=== PATIENT | female | born 1960 | race Caucasian/White ===

== ENCOUNTER → 2016-10-16 | Outpatient (REF) | payer BC ==
[~2016-10-16] MED LIST: ADVI200C5 PO; ASPI1TAB PO; ASPI81CH PO; BIOT50004 PO; CRES5TAB PO; FISH120012 PO; GINS100C2 PO; HYDR200T3 PO; K-TA10TA2 PO; LEVA250T PO; LISI-538 PO; MAG400TA PO; MELA1LIQ2 PO; MELA1TAB15 PO; METF500T PO; MULT1TAB10 PO; SYNT175T2 PO; VENL37.54 PO; VENL37TA PO; VITA100072 PO
[2016-10-16 18:27] LABS: MEAN CORPUSCULAR HEMOGLOBIN 30.6 pg (27.0-33.0); MEAN CORPUSCULAR HGB CONC 34.4 g/dl (32.0-36.5); MEAN CORPUSCULAR VOLUME 88.8 fl (80.0-96.0); RED CELL DISTRIBUTION WIDTH 13.9 % (11.5-14.5); WHITE BLOOD COUNT 11.1 K/mm3 (4.0-10.0)
[2016-10-16 19:56] LABS: ALBUMIN 3.7 GM/DL (3.2-5.2); ALBUMIN/GLOBULIN RATIO 1.16 (1.00-1.93); ALKALINE PHOSPHATASE 144 U/L (45-117); ALT/SGPT 26 U/L (12-78); ANION GAP 8 MEQ/L (8-16); AST/SGOT 20 U/L (15-37); BILIRUBIN,TOTAL 0.2 MG/DL (0.2-1.0); BLOOD UREA NITROGEN 21 MG/DL (7-18); CARBON DIOXIDE LEVEL 30 MEQ/L (21-32); CHLORIDE LEVEL 107 MEQ/L (98-107); CHOLESTEROL LEVEL 181 MG/DL (<200); CREATININE FOR GFR 0.89 MG/DL (0.55-1.02); GLOMERULAR FILTRATION RATE > 60.0 (>51); GLUCOSE, FASTING 90 MG/DL (70-105); MAGNESIUM LEVEL 1.9 MG/DL (1.8-2.4); POTASSIUM SERUM 4.5 MEQ/L (3.5-5.1); SODIUM LEVEL 145 MEQ/L (136-145); TOTAL PROTEIN 6.9 GM/DL (6.4-8.2); TRIGLYCERIDES LEVEL 341 MG/DL (<150)
== END | disposition home or self-care (01) ==
LOC: M SFHCPLAZ 15:43
PROVIDERS: ATTEND Internal Medicine
DX: M35.1 Other overlap syndromes (principal); R73.01 Impaired fasting glucose; E78.00 Pure hypercholesterolemia, unspecified; I10 Essential (primary) hypertension

== ENCOUNTER → 2016-12-04 | Outpatient (CLI) | payer BC ==
[~2016-12-04] MED LIST changes: +LIDOCAINE 1% MDV 20ML VIAL As Ordered ONE
--- NOTE | 2016-12-04 12:28 | REP ---
SPECIMEN RADIOGRAPH: Specimen radiographs are performed status post stereotactic biopsy of the left breast. Multiple calcifications are seen in the specimens. Signed by Rashaun Rosario MD 12/04/2016 04:15 P
--- NOTE | 2016-12-04 12:30 | REP ---
POSTBIOPSY MAMMOGRAM LEFT BREAST: Postbiopsy mammogram left breast is performed in the MLO and CC projections. A metallic clips is seen at the site of the calcifications in the upper left breast. Calcifications are no longer visualized. Signed by Rashaun Rosario MD 12/04/2016 04:15 P
--- NOTE | 2016-12-04 17:37 | REP ---
STEREOTACTIC LEFT BREAST BIOPSY: The procedure was performed under the direct supervision of Dr. Rosario. The patient has a history of a cluster of new microcalcifications in the upper aspect of the left breast seen on a previous mammogram from [facility] performed on 11/07/2016. The risks and benefits of the procedure were explained to the patient and informed consent was obtained. A cranial caudal approach was utilized. The calcifications were localized using stereotactic mammographic guidance. The skin was prepped and draped in a sterile fashion. 1% Xylocaine was used as a local anesthetic. A 10-gauge suction assisted mammotome needle was inserted and 10 core biopsy samples were obtained. Specimen radiograph demonstrates the presence of calcifications to be within the specimen. A marker clip was placed at the biopsy site. The patient tolerated the procedure well and there were no immediate complications. After the appropriate amount of monitored convalescence the patient was discharged from the department. Reviewed by TRENTON Kelley 12/05/2016 01:29 PEdited and Signed by Rashaun Rosario MD 12/05/2016 08:04 P
== END ==
LOC: M RADPRO 09:56
PROVIDERS: ATTEND Surgery
DX: N64.1 Fat necrosis of breast (principal); R92.0 Mammographic microcalcification found on diagnostic imaging of breast

== ENCOUNTER → 2017-05-25 | Outpatient (CLI) | payer BC ==
[~2017-05-25] MED LIST changes: +LEVA1TAB PO; -LEVA250T PO; -LIDOCAINE 1% MDV 20ML VIAL As Ordered ONE; -METF500T PO; +METF500T13 PO
--- NOTE | 2017-05-25 15:25 | REP ---
LOW-DOSE LUNG CANCER SCREENING NONCONTRAST CHEST CT: HISTORY: Nicotine dependence. Comparison chest x-ray is from February 12, 2017. FINDINGS: There is a 4 mm nodule in the left lower lobe on image number 58 of 109. This is noncalcified. No other pulmonary nodule is appreciated. There is vascular calcification noted. No endobronchial disease is seen. IMPRESSION: Positive screening lung CT study. 4 mm nodule left lower lobe. By Fleischner Society criteria a followup chest CT is indicated in 6-12 months. Signed by Jayson Rebolledo MD 05/25/2017 04:59 P
== END ==
LOC: M RAD 13:33
PROVIDERS: ATTEND Internal Medicine
DX: Z87.891 Personal history of nicotine dependence (principal); R91.8 Other nonspecific abnormal finding of lung field

== ENCOUNTER → 2017-08-20 | Outpatient (CLI) | payer BC ==
--- NOTE | 2017-08-20 09:31 | REP ---
Clinical: Follow up abnormal pulmonary findings. Comparison: 05/25/2017. Findings: Chronic stable interstitial changes and mild chronic bronchiectasis remains stable. The noncalcified 4-mm nodule in the left lower lobe is unchanged (image 62). No new consolidation, significant nodule or mass lesion appreciated. No pleural effusion/reaction or pneumothorax. No obvious adenopathy. Stable atherosclerotic changes to the thoracic aorta and coronary arteries noted without aortic aneurysm or cardiomegaly. No pericardial effusion. Musculoskeletal structures demonstrate age-related changes without focal osseous abnormality. Upper abdomen demonstrates prior cholecystectomy and stable 3.1 cm left adrenal adenoma. Impression: 1. Stable chronic pulmonary parenchymal changes and stable 4 mm noncalcified nodule in the left lower lobe. Follow-up examination in 12 months to document stability may be warranted. 2. No new acute mediastinal or pleuroparenchymal process. Signed by Tobin Grande MD 08/20/2017 09:23 A
== END ==
LOC: M RAD 08:33
PROVIDERS: ATTEND Internal Medicine Pulmonary Disease
DX: R91.1 Solitary pulmonary nodule (principal)

== ENCOUNTER → 2018-03-15 | Outpatient (CLI) | payer BC | LOC: M RAD 10:08 | DX: R91.1 Solitary pulmonary nodule (principal) | CPT/HCPCS: 71250 ==

== ENCOUNTER → 2018-10-07 | Outpatient (CLI) | payer BC ==
[~2018-10-07] MED LIST changes: -LEVA1TAB PO; +LEVA250T13 PO
--- NOTE | 2018-10-09 08:39 | REP ---
Clinical: Follow up solitary pulmonary nodule. Technique: Axial noncontrast images from the thoracic inlet to the upper abdomen with coronal and sagittal re-formations. Comparison: 08/20/2017. Findings: The bilateral lung gillis again demonstrate mild chronic emphysematous changes with small scattered bullae/blebs and mild bronchiectasis. Previously noted 4 mm noncalcified nodule in the left lower lobe (image 60) remains stable. No acute consolidation, further nodule or mass lesion identified. No effusion. No pneumothorax. No obvious adenopathy. Stable atherosclerotic changes to the thoracic aorta and coronary arteries again noted without aortic aneurysm, cardiomegaly or pericardial effusion. Limited upper abdomen demonstrates stable left adrenal adenoma and evidence of prior cholecystectomy. Surrounding musculoskeletal structures without focal osseous abnormality. Impression: 1. Stable noncalcified 4-mm nodule in the left lower lobe. 2. Stable mild/moderate chronic emphysematous changes. 3. Stable left adrenal adenoma. 4. No acute mediastinal or pleuroparenchymal process appreciated. Electronically Signed by Tobin Grande MD 10/09/2018 08:31 A
== END ==
LOC: M RAD 13:31
PROVIDERS: ATTEND Internal Medicine Pulmonary Disease
DX: R91.1 Solitary pulmonary nodule (principal)

== ENCOUNTER → 2018-10-14 | Outpatient (REF) | payer BC ==
[2018-10-14 12:55] LABS: CREATININE, URINE 52.7 MG/DL; MALB URINE SIEMENS 24.1 MG/L; MAU/CREAT RATIO 45.7 MCG/MG (0.0-30.0)
[2018-10-14 13:11] LABS: ALBUMIN 3.8 GM/DL (3.2-5.2); ALT/SGPT 27 U/L (12-78); BILIRUBIN,TOTAL 0.3 MG/DL (0.2-1.0); BLOOD UREA NITROGEN 15 MG/DL (7-18); CALCIUM LEVEL 8.9 MG/DL (8.5-10.1); CARBON DIOXIDE LEVEL 25 MEQ/L (21-32); CHLORIDE LEVEL 105 MEQ/L (98-107); CHOLESTEROL LEVEL 160 MG/DL (<200); CHOLESTEROL RISK RATIO 2.285 (<5); CREATININE FOR GFR 0.71 MG/DL (0.55-1.30); GLOMERULAR FILTRATION RATE > 60.0 (>51); GLUCOSE, FASTING 69 MG/DL (70-100); HDL CHOLESTEROL 70 MG/DL (>40); LDL CHOLESTEROL 63 MG/DL (<100); NON-HDL-C 90 MG/DL; POTASSIUM SERUM 4.5 MEQ/L (3.5-5.1); SODIUM LEVEL 142 MEQ/L (136-145); TOTAL PROTEIN 6.7 GM/DL (6.4-8.2); TRIGLYCERIDES LEVEL 136 MG/DL (<150)
[2018-10-14 13:39] LABS: HEMOGLOBIN A1c 5.1 %; HEPATITIS C VIRUS ABY INDEX 0.1 INDEX (<0.8)
== END ==
LOC: M SFHCPLAZ 09:01
PROVIDERS: ATTEND Internal Medicine
DX: I10 Essential (primary) hypertension (principal); R94.5 Abnormal results of liver function studies; R73.01 Impaired fasting glucose; E78.00 Pure hypercholesterolemia, unspecified; E03.9 Hypothyroidism, unspecified

== ENCOUNTER 2018-10-24 19:00 | Emergency (ER) | payer BC ==
[~2018-10-24] VITALS: Ht 152.4 cm; Wt 59.1 kg
[2018-10-24] MEDS ORDERED: LEFL1TAB4 (19:06)
[2018-10-24] MEDS ORDERED: SYNT150T (19:06)
--- NOTE | 2018-10-24 21:22 | REPVR ---
EXAM: CT Head Without Contrast EXAM DATE/TIME: 10/24/18 (8:27pm) CLINICAL HISTORY: 58 year old female. Recent fall. Hit the back of her head. TECHNIQUE: Axial computed tomography images of the head/ without contrast. All CT scans at this facility use at least one of these dose optimization techniques: automated exposure control; mA and/or kV adjustment per patient size (includes targeted exams where dose is matched to clinical indication); or iterative reconstruction. COMPARISON: No relevant prior studies available FINDINGS: Brain: Unremarkable. No acute hemorrhage. No significant white matter disease. No cerebral edema. Ventricles: Normal. No ventriculomegaly. Bones/joints: Normal. No acute fracture. Sinuses: Normal as visualized. No acute sinusitis. Mastoid air cells: Normal as visualized. No mastoid effusion. Soft tissues: Mild occipital scalp swelling. IMPRESSION: No acute intracranial pathology is appreciated. Electronically signed by: Shweta Santacruz On 10/24/2018 21:22:26 PM
[2018-10-24 21:52] VITALS: BP 167/83
== END 2018-10-24 21:53 | disposition home or self-care (01) ==
LOC: M ED 19:00
DX: S00.01XA Abrasion of scalp, initial encounter (principal); S00.03XA Contusion of scalp, initial encounter; W18.39XA Other fall on same level, initial encounter; Y92.481 Parking lot as the place of occurrence of the external cause; Y99.0 Civilian activity done for income or pay; E11.9 Type 2 diabetes mellitus without complications; I10 Essential (primary) hypertension; E78.5 Hyperlipidemia, unspecified; E03.9 Hypothyroidism, unspecified; M32.9 Systemic lupus erythematosus, unspecified; Z79.899 Other long term (current) drug therapy; Z79.890 Hormone replacement therapy; Z79.84 Long term (current) use of oral hypoglycemic drugs; Z79.82 Long term (current) use of aspirin; Z88.8 Allergy status to other drugs, medicaments and biological substances; F17.210 Nicotine dependence, cigarettes, uncomplicated

== ENCOUNTER 2019-02-27 22:00 | Emergency (ER) | payer BC ==
[~2019-02-27] VITALS: Ht 152.4 cm; Wt 65.9 kg
[~2019-02-27 22:00] MED LIST changes: -ASPI1TAB PO; -ASPI81CH PO; +ASPI81CH49 PO; +ASPI81TA26 PO; +LEFL1TAB4; +SYNT150T; +VENL-63 PO; -VENL37.54 PO; +VITA100018 PO; -VITA100072 PO
[2019-02-28] MEDS ORDERED: ONDANSETRON 4 MG ORAL DISINTEGRATING TAB (Q0162 PER 1MG) PO ONE (00:45)
[2019-02-28] MEDS ORDERED: KETOROLAC TROMETHAMINE 10 MG TAB PO ONE (00:45)
--- NOTE | 2019-02-28 01:55 | REPVR ---
EXAM: CT Abdomen and Pelvis Without Contrast EXAM DATE/TIME: 02/28/2019 12:38 AM CLINICAL HISTORY: 58 years old, female; Abdominal pain; Other: Suprapubic, back; Additional info: Back/suprapubic pain TECHNIQUE: Imaging protocol: Axial computed tomography images of the abdomen and pelvis without contrast. Coronal and sagittal reformatted images were created and reviewed. Radiation optimization: All CT scans at this facility use at least one of these dose optimization techniques: automated exposure control; mA and/or kV adjustment per patient size (includes targeted exams where dose is matched to clinical indication); or iterative reconstruction. COMPARISON: CT ABD PELVIS W/O CONTRAST 03/05/2016 5:53 PM FINDINGS: Lungs: Slight interstitial prominence in the lateral right base. ABDOMEN: Liver: Normal. No mass. Gallbladder and bile ducts: Status post cholecystectomy. Pancreas: Normal. No ductal dilation. Spleen: Normal. No splenomegaly. Adrenals: Fatty mass of the left adrenal measuring 3.6 x 2.5 x 3.2 cm. Kidneys and ureters: Minimal right pelvocaliectasis to the UPJ. Stomach and bowel: Moderate stool throughout much of the colon but greatest proximally. Upper normal fluid filled small bowel with a few air-fluid levels which is slightly decreased since the prior study. Appendix: There are no changes of appendicitis. A normal appendix is not seen. PELVIS: Bladder: Slight distention of the urinary bladder to the L5-S1 level. Reproductive: Unremarkable as visualized. ABDOMEN and PELVIS: Intraperitoneal space: Normal. No free air. No significant fluid collection. Bones/joints: Degenerative changes of the lumbar spine with facet arthropathy and slight anterolisthesis of L3 relative to L4. Soft tissues: Minimal fat filled umbilical hernia. Vasculature: Normal. No abdominal aortic aneurysm. Lymph nodes: Normal. No enlarged lymph nodes. IMPRESSION: 1. Status post cholecystectomy. 2. Left adrenal nodule measuring 3.6 x 2.5 x 3.2 cm. 3. Upper normal fluid filled segments of small bowel with a few air-fluid levels which may reflect minimal ileus or possibly enteritis but is slightly decreased overall since 03/05/2016. 4. Otherwise negative CT abdomen/pelvis. Electronically signed by: Yovany Garcia On 02/28/2019 01:55:19 AM
[2019-02-28] MEDS ORDERED: MIRA3350 PO (02:05)
[2019-02-28] MEDS ORDERED: ZOFR4TAB16 PO (02:05)
[2019-02-28 02:12] VITALS: BP 112/54
--- NOTE | 2019-03-01 07:32 | ED PDOC ---
Post-Departure Follow-Up dr oropeza faxed formal report of ct abd/p for fu Kurt De Santiago MD Mar 01, 2019 07:32
[2019-03-10] MEDS ORDERED: OMEG12003 PO (08:16)
[2019-03-10] MEDS ORDERED: IBUP200C25 PO (08:16)
[2019-03-10] MEDS ORDERED: MULTCAP PO (08:16)
[2019-03-10] MEDS ORDERED: GINS100C PO (08:16)
[2019-03-10] MEDS ORDERED: VENL37.598 PO (08:16)
== END 2019-02-28 02:19 | disposition home or self-care (01) ==
LOC: M ED 22:00
DX: K56.7 Ileus, unspecified (principal); R11.2 Nausea with vomiting, unspecified; E11.9 Type 2 diabetes mellitus without complications; I10 Essential (primary) hypertension; E78.5 Hyperlipidemia, unspecified; E03.9 Hypothyroidism, unspecified; M32.9 Systemic lupus erythematosus, unspecified; Z79.899 Other long term (current) drug therapy; Z79.82 Long term (current) use of aspirin; Z79.84 Long term (current) use of oral hypoglycemic drugs; Z79.1 Long term (current) use of non-steroidal anti-inflammatories (NSAID); Z88.8 Allergy status to other drugs, medicaments and biological substances; F17.210 Nicotine dependence, cigarettes, uncomplicated
CPT/HCPCS: 36415; 74176; 80047; 81001; 99283; Q0162

== ENCOUNTER 2019-03-02 07:10 | Emergency (ER) | payer BC ==
[~2019-03-02] VITALS: Ht 152.4 cm; Wt 64.6 kg
[~2019-03-02 07:10] MED LIST changes: +MIRA3350 PO; +ZOFR4TAB16 PO
[2019-03-02] MEDS ORDERED: SYNT175T2 (07:20)
[2019-03-02 09:13] LABS: BASO % 0.3 % (0.0-1.0); EOS # 0.2 10^3/uL (0.0-0.50); EOS % 1.4 % (0.0-3.0); HEMOGLOBIN 12.9 g/dl (12.0-15.5); LYMPH # 2.6 10^3/uL (1.5-4.5); LYMPH % 24.1 % (24.0-44.0); MEAN CORPUSCULAR HEMOGLOBIN 30.2 pg (27.0-33.0); MEAN CORPUSCULAR HGB CONC 33.9 g/dl (32.0-36.5); MONO # 0.8 10^3/uL (0.0-0.8); NEUTROPHILS # 7.3 10^3/uL (1.8-7.7); NEUTROPHILS % 66.7 % (36.0-66.0); PLATELET COUNT, AUTOMATED 343 10^3/uL (150-450); RED BLOOD COUNT 4.27 10^6/uL (4.00-5.40); WHITE BLOOD COUNT 10.9 10^3/uL (4.0-10.0)
[2019-03-02 09:33] LABS: ALBUMIN 3.4 GM/DL (3.2-5.2); ALT/SGPT 23 U/L (12-78); BILIRUBIN,DIRECT < 0.1 MG/DL (0.0-0.2); BILIRUBIN,TOTAL 0.3 MG/DL (0.2-1.0); LIPASE 62 U/L (73-393); TOTAL PROTEIN 6.6 GM/DL (6.4-8.2)
[2019-03-02] MEDS ORDERED: ISOVUE-370 76% 100ML VIAL (Q9967) As Ordered ONE (09:34)
--- NOTE | 2019-03-02 09:49 | REP ---
Clinical: Constipation and abdominal pain. Technique: Upright view of the chest with supine and upright views of the abdomen and pelvis. Findings: Frontal upright view of the chest demonstrates no acute cardiopulmonary process or free air below the diaphragm to suspect pneumoperitoneum. Supine and upright views of the abdomen and pelvis demonstrate nonspecific bowel gas pattern without obstruction or perforation. No organomegaly. Prior cholecystectomy. 9 mm right renal stone suggested. Impression: Nonspecific bowel gas pattern. Right renal stone. Electronically Signed by Tobin Grande MD 03/02/2019 09:40 A
--- NOTE | 2019-03-02 10:09 | REP ---
Clinical: Abdominal pain. Technique: Axial contrast enhanced images from the lung bases to the pubic symphysis using 100 ml Isovue 370 intravenous contrast material with coronal and sagittal re-formations. Renato: 02/28/2019. Findings: Lung bases demonstrate minimal right basilar dependent changes. Visualized heart and pericardium normal. Diffuse fatty infiltration to the liver suggested without focal hepatic lesion. Spleen, pancreas, right adrenal gland and bilateral kidneys are essentially normal. Small renal hypodensities are stable and compatible with cysts. 3.5 cm heterogeneous enhancing left adrenal mass is similar to prior examinations dating through 2007 and consistent with complex adenoma. There is no evidence for right renal calculus and the finding on recent x-ray corresponds to ingested pill in the proximal transverse colon. The enteric system is without obstruction or acute inflammatory process although mild fecal stasis and constipation cannot be excluded. Pelvis demonstrates distended likely transient otherwise normal bladder and age-appropriate uterus/adnexa. No pelvic fluid or ascites. No free air. No adenopathy. Atherosclerotic changes to the aorta without aneurysm or dissection. Musculoskeletal structures demonstrate age-related degenerative changes without focal osseous abnormality. Impression: 1. Hepatic steatosis without focal hepatic lesion. 2. 3.5 cm heterogeneous enhancing left adrenal mass similar to the prior examinations and likely representing complex adenoma. 3. No renal calculi. Small bilateral renal cysts remain stable. 4. Mild fecal stasis and associated constipation cannot be excluded. 5. No further acute abdominopelvic pathology appreciated. Electronically Signed by Tobin Grande MD 03/02/2019 10:00 A
[2019-03-02] MEDS ORDERED: FLEET ENEMA PR PRN (10:45)
[2019-03-02] MEDS ORDERED: MAGNESIUM CITRATE 300 ML BTL PO ONE (12:00)
[2019-03-02 12:27] VITALS: BP 149/72
--- NOTE | 2019-03-03 06:49 | ED PDOC ---
Post-Departure Follow-Up dr oropeza faxed formal report of ct abd/p for fu Kurt De Santiago MD Mar 03, 2019 06:49
[2019-03-10] MEDS ORDERED: GINS100C PO (08:16)
[2019-03-10] MEDS ORDERED: MULTCAP PO (08:16)
[2019-03-10] MEDS ORDERED: VENL37.598 PO (08:16)
[2019-03-10] MEDS ORDERED: OMEG12003 PO (08:16)
[2019-03-10] MEDS ORDERED: IBUP200C25 PO (08:16)
== END 2019-03-02 12:29 | disposition home or self-care (01) ==
LOC: M ED 07:10
DX: K59.00 Constipation, unspecified (principal); E11.9 Type 2 diabetes mellitus without complications; I10 Essential (primary) hypertension; E78.9 Disorder of lipoprotein metabolism, unspecified; E07.9 Disorder of thyroid, unspecified; Z79.899 Other long term (current) drug therapy; Z79.890 Hormone replacement therapy; Z79.84 Long term (current) use of oral hypoglycemic drugs; Z79.82 Long term (current) use of aspirin; Z88.8 Allergy status to other drugs, medicaments and biological substances; F17.210 Nicotine dependence, cigarettes, uncomplicated
CPT/HCPCS: 36415; 74021; 74177; 80047; 80076; 81001; 83605; 83690; 85025; 87086; 99284; Q9967

== ENCOUNTER 2019-03-21 07:49 | Day surgery (SDC) | payer BC ==
[~2019-03-21] VITALS: Ht 152.4 cm; Wt 62.6 kg
[~2019-03-21 07:49] MED LIST changes: +GINS100C PO; +IBUP200C25 PO; +MULTCAP PO; +OMEG12003 PO; +SYNT175T2; +VENL37.598 PO
[2019-03-21] MEDS ORDERED: NS 1,000 ML IV ONE (09:00)
[2019-03-21] MEDS ORDERED: PROPOFOL 200 MG/20 ML VIAL As Ordered ONE ×3 (09:23→10:02)
--- NOTE | 2019-03-21 10:08 | ROOR ---
Patient Name: Diamond Whelan Procedure Date: 03/21/2019 9:27 AM Date of : 1960 Age: 58 Room: [facility] Gender: Female Note Status: Finalized Procedure: Colonoscopy Indications: High risk colon cancer surveillance: Personal history of colonic polyps Providers: Bolivar ARIAS MD Referring MD: Aaron Morillo MD Requesting Provider: Medicines: Monitored Anesthesia Care Complications: No immediate complications. Procedure: Pre-Anesthesia Assessment: - The heart rate, respiratory rate, oxygen saturations, blood pressure, adequacy of pulmonary ventilation, and response to care were monitored throughout the procedure. - The heart rate, respiratory rate, oxygen saturations, blood pressure, adequacy of pulmonary ventilation, and response to care were monitored throughout the procedure. The Colonoscope was introduced through the anus and advanced to the cecum, identified by appendiceal orifice and ileocecal valve. The colonoscopy was performed with difficulty due to inadequate bowel prep. Successful completion of the procedure was aided by lavage. The patient tolerated the procedure well. The quality of the bowel preparation was inadequate. Findings: The perianal and digital rectal examinations were normal. A 12 mm polyp was found in the ascending colon. The polyp was flat. The polyp was removed with a piecemeal technique using a cold snare. Resection and retrieval were complete. The exam was otherwise normal throughout the examined colon. Impression: - Preparation of the colon was inadequate. - One 12 mm polyp in the ascending colon, removed piecemeal using a cold snare. Resected and retrieved. Recommendation: - Repeat colonoscopy in 6 months for surveillance. Bolivar Arias MD Bolivar ARIAS MD 03/21/2019 10:07:50 AM Electronically signed by Bolivar ARIAS MD Number of Addenda: 0 Note Initiated On: 03/21/2019 9:27 AM Estimated Blood Loss: Estimated blood loss: none.
[2019-03-21 10:30] VITALS: BP 160/85
== END 2019-03-21 11:10 | disposition home or self-care (01) ==
LOC: M OPP 07:49
PROVIDERS: ATTEND Internal Medicine Gastroenterology
DX: Z12.11 Encounter for screening for malignant neoplasm of colon (principal); Z86.010 Personal history of colon polyps; D12.2 Benign neoplasm of ascending colon; Z79.82 Long term (current) use of aspirin; Z79.84 Long term (current) use of oral hypoglycemic drugs; Z88.8 Allergy status to other drugs, medicaments and biological substances; F17.210 Nicotine dependence, cigarettes, uncomplicated

== ENCOUNTER → 2019-04-08 | Outpatient (CLI) | payer BC ==
--- NOTE | 2019-04-08 23:42 | REP ---
Clinical: Follow up solitary pulmonary nodule. Technique: Axial noncontrast images from the thoracic inlet to the upper abdomen with coronal and sagittal re-formations. Comparison: 10/07/2018, 05/25/2017. Findings: Bilateral lung gillis are well-aerated with a mild chronic interstitial changes and mild bronchiectasis again noted. Previously identified 4 mm noncalcified nodule remains stable compared to 05/25/2017. No acute consolidation, significant nodule or mass lesion appreciated. No pleural effusion. No pneumothorax. Tracheobronchial tree is patent. No obvious adenopathy. Atherosclerotic changes to the thoracic aorta and coronary arteries noted without aortic aneurysm or cardiomegaly. No pericardial effusion. Musculoskeletal structures demonstrate age-related changes without focal osseous abnormality. 3 cm complex left adrenal mass unchanged and consistent with adenoma. Impression: 1. Stable 4 mm and noncalcified nodule in the left lower lobe unchanged compared through 2017. Finding likely represents benign chronic granuloma and requires no further investigation. 2. No acute mediastinal or pleuroparenchymal process. 3. Complex left adrenal adenoma unchanged compared to 2017. Electronically Signed by Tobin Grande MD 04/08/2019 11:33 P
== END ==
LOC: M RAD 12:02
PROVIDERS: ATTEND Internal Medicine Pulmonary Disease
DX: R91.1 Solitary pulmonary nodule (principal); D35.02 Benign neoplasm of left adrenal gland

== ENCOUNTER → 2019-11-17 | Outpatient (CLI) | payer BC ==
[2019-11-17 13:04] LABS: HEMOGLOBIN 12.9 g/dl (12.0-15.5); MEAN CORPUSCULAR HEMOGLOBIN 29.8 pg (27.0-33.0); MEAN CORPUSCULAR HGB CONC 32.3 g/dl (32.0-36.5); MEAN CORPUSCULAR VOLUME 92.4 fl (80.0-96.0); PLATELET COUNT, AUTOMATED 333 10^3/uL (150-450); RED BLOOD COUNT 4.33 10^6/uL (4.00-5.40); WHITE BLOOD COUNT 13.1 10^3/uL (4.0-10.0)
[2019-11-17 13:31] LABS: HEMOGLOBIN A1c 5.4 %
[2019-11-17 13:32] LABS: ALBUMIN 3.4 GM/DL (3.2-5.2); ALT/SGPT 21 U/L (12-78); BILIRUBIN,TOTAL 0.2 MG/DL (0.2-1.0); BLOOD UREA NITROGEN 17 MG/DL (7-18); CALCIUM LEVEL 8.6 MG/DL (8.5-10.1); CARBON DIOXIDE LEVEL 30 MEQ/L (21-32); CHLORIDE LEVEL 109 MEQ/L (98-107); CHOLESTEROL LEVEL 156 MG/DL (<200); CHOLESTEROL RISK RATIO 3.319 (<5); CREATININE FOR GFR 0.79 MG/DL (0.55-1.30); GLOMERULAR FILTRATION RATE > 60.0 (>51); GLUCOSE, FASTING 94 MG/DL (70-100); HDL CHOLESTEROL 47 MG/DL (>40); LDL CHOLESTEROL 68 MG/DL (<100); MAGNESIUM LEVEL 1.9 MG/DL (1.8-2.4); NON-HDL-C 109 MG/DL; SODIUM LEVEL 142 MEQ/L (136-145); TOTAL PROTEIN 6.4 GM/DL (6.4-8.2); TRIGLYCERIDES LEVEL 207 MG/DL (<150)
[2019-11-17 13:34] LABS: TOTAL 25(OH) VITAMIN D 10.4 NG/ML (30.0-100.0)
[2019-11-17 13:47] LABS: MALB URINE SIEMENS 39.8 MG/L
== END ==
LOC: M PLALAB 09:11
PROVIDERS: ATTEND Internal Medicine
DX: I10 Essential (primary) hypertension (principal); E03.9 Hypothyroidism, unspecified; R73.01 Impaired fasting glucose; E78.00 Pure hypercholesterolemia, unspecified; M35.1 Other overlap syndromes; M80.00XD Age-related osteoporosis with current pathological fracture, unspecified site, subsequent encounter for fracture with routine healing

== ENCOUNTER → 2020-03-26 | Outpatient (CLI) | payer BC ==
[~2020-03-26] MED LIST changes: +LEFL1TAB4 PO; +MELO15TA28 PO
== END ==
LOC: M LABSMTC 10:17
PROVIDERS: ATTEND Anesthesiology
DX: Z01.818 Encounter for other preprocedural examination (principal); Z11.59 Encounter for screening for other viral diseases
CPT/HCPCS: C9803; U0003

== ENCOUNTER 2020-03-29 09:21 | Day surgery (SDC) | payer BC ==
[~2020-03-29] VITALS: Ht 152.4 cm; Wt 72.5 kg
[2020-03-29] MEDS ORDERED: NS 1,000 ML IV ONE (10:15)
[2020-03-29] MEDS ORDERED: propofoL 500 MG/50 ML VIAL As Ordered ONE (10:45)
[2020-03-29] MEDS ORDERED: LIDOCAINE 2% 100MG/5ML SDV (FOR ANES.) As Ordered ONE (10:45)
--- NOTE | 2020-03-29 11:11 | ROOR ---
Patient Name: Diamond Whelan Procedure Date: 03/29/2020 10:41 AM Date of : 1960 Age: 59 Room: [facility] Gender: Female Note Status: Finalized Procedure: Colonoscopy Indications: High risk colon cancer surveillance: Personal history of colonic polyps, Surveillance: Personal history of adenomatous polyps, inadequate prep on last colonoscopy (less than 1 year ago), High risk colon cancer surveillance: Personal history of adenoma (10 mm or greater in size) Providers: Bolivar ARIAS MD Referring MD: Aaron Morillo MD Requesting Provider: Medicines: Monitored Anesthesia Care Complications: No immediate complications. Procedure: Pre-Anesthesia Assessment: - The heart rate, respiratory rate, oxygen saturations, blood pressure, adequacy of pulmonary ventilation, and response to care were monitored throughout the procedure. The Colonoscope was introduced through the anus and advanced to the cecum, identified by appendiceal orifice and ileocecal valve. The colonoscopy was somewhat difficult due to unsatisfactory bowel prep. Successful completion of the procedure was aided by lavage. The patient tolerated the procedure well. The quality of the bowel preparation was fair. Findings: The perianal and digital rectal examinations were normal. (EXAM: Complete, PREP: Suboptimal) A 10 mm polyp was found in the ascending colon. The polyp was flat. The polyp was removed with a cold snare. Resection and retrieval were complete. Mild sigmoid diverticulosis and small internal hemorrhoids. There was a small lipoma, in the sigmoid colon. The exam was otherwise without abnormality on direct and retroflexion views. Impression: - (EXAM: Complete, PREP: Suboptimal) - One 10 mm polyp in the ascending colon, removed with a cold snare. Resected and retrieved. - Small lipoma in the sigmoid colon. - Mild sigmoid diverticulosis and small internal hemorrhoids. - The examination was otherwise normal on direct and retroflexion views. Recommendation: - Repeat colonoscopy in 2 years because the bowel preparation was suboptimal. - (Rec alternate colon preparation for next colonoscopy) Bolivar Arias MD Bolivar ARIAS MD 03/29/2020 11:11:13 AM Electronically signed by Bolivar ARIAS MD Number of Addenda: 0 Note Initiated On: 03/29/2020 10:41 AM Estimated Blood Loss: Estimated blood loss: none.
[2020-03-29 11:30] VITALS: BP 155/84
== END 2020-03-29 12:05 | disposition home or self-care (01) ==
LOC: M OPP 09:21
PROVIDERS: ATTEND Internal Medicine Gastroenterology
DX: K63.5 Polyp of colon (principal); D17.5 Benign lipomatous neoplasm of intra-abdominal organs; Z86.010 Personal history of colon polyps; F17.210 Nicotine dependence, cigarettes, uncomplicated; Z79.82 Long term (current) use of aspirin; Z79.899 Other long term (current) drug therapy; Z09 Encounter for follow-up examination after completed treatment for conditions other than malignant neoplasm

== ENCOUNTER 2020-07-31 20:25 | Emergency (ER) | payer BC ==
[~2020-07-31] VITALS: Ht 152.4 cm; Wt 68.2 kg
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
--- NOTE | 2020-07-31 22:18 | REPVR ---
PROCEDURE INFORMATION: Exam: XR Left Knee Exam date and time: 07/31/2020 10:03 PM Age: 60 years old Clinical indication: Pain; Knee; Left; Additional info: Fall, rule out fracture TECHNIQUE: Imaging protocol: XR Left knee. Views: 1 or 2 views. COMPARISON: No relevant prior studies available. FINDINGS: Bones/joints: Mild degenerative narrowing of the medial joint space. Degenerative spurring of the patella. No acute fracture. No dislocation. Soft tissues: Unremarkable. IMPRESSION: No acute fracture or dislocation. Electronically signed by: Jairo Ashton On 07/31/2020 22:18:28 PM
--- NOTE | 2020-07-31 22:19 | REPVR ---
PROCEDURE INFORMATION: Exam: XR Right Tibia and Fibula Exam date and time: 07/31/2020 10:03 PM Age: 60 years old Clinical indication: Pain; Lower leg; Left; Additional info: Fall, rule out fracture TECHNIQUE: Imaging protocol: XR Right tibia and fibula. Views: 2 views. COMPARISON: No relevant prior studies available. FINDINGS: Bones/joints: No acute fracture or dislocation. Joint spaces are unremarkable. Soft tissues: Unremarkable. IMPRESSION: No acute findings. Electronically signed by: Jairo Ashton On 07/31/2020 22:19:43 PM
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
[2020-07-31 22:21] LABS: BASO % 0.3 % (0.0-1.0); EOS # 0.2 10^3/uL (0.0-0.5); EOS % 1.4 % (0.0-3.0); HEMATOCRIT 39.5 % (36.0-47.0); HEMOGLOBIN 13.1 g/dl (12.0-15.5); LYMPH # 3.1 10^3/uL (1.5-5.0); LYMPH % 21.4 % (24.0-44.0); MEAN CORPUSCULAR HEMOGLOBIN 30.3 pg (27.0-33.0); MEAN CORPUSCULAR HGB CONC 33.2 g/dl (32.0-36.5); MEAN CORPUSCULAR VOLUME 91.4 fl (80.0-96.0); MONO # 0.9 10^3/uL (0.0-0.8); NEUTROPHILS # 10.3 10^3/uL (1.5-8.5); NEUTROPHILS % 70.4 % (36.0-66.0); PLATELET COUNT, AUTOMATED 307 10^3/uL (150-450); RED BLOOD COUNT 4.32 10^6/uL (4.00-5.40); WHITE BLOOD COUNT 14.6 10^3/uL (4.0-10.0)
[2020-07-31 23:00] LABS: AMPHETAMINES LEVEL URINE NEGATIVE (NEGATIVE); BARBITURATES URINE NEGATIVE (NEGATIVE); BENZODIAZEPINES URINE NEGATIVE (NEGATIVE); CANNABINOIDS URINE NEGATIVE (NEGATIVE); COCAINE METABOLITE URINE NEGATIVE (NEGATIVE); METHADONE URINE NEGATIVE (NEGATIVE); OPIATES URINE NEGATIVE (NEGATIVE); PHENCYCLIDINE URINE NEGATIVE (NEGATIVE)
[2020-07-31 23:02] LABS: ALBUMIN 3.3 GM/DL (3.2-5.2); ALT/SGPT 36 U/L (12-78); BILIRUBIN,DIRECT < 0.1 MG/DL (0.0-0.2); BILIRUBIN,TOTAL 0.3 MG/DL (0.2-1.0); BLOOD UREA NITROGEN 20 MG/DL (7-18); CALCIUM LEVEL 8.9 MG/DL (8.8-10.2); CARBON DIOXIDE LEVEL 26 MEQ/L (21-32); CHLORIDE LEVEL 108 MEQ/L (98-107); CK-MB VALUE MASS 4.2 NG/ML (<3.6); CPK CREATINE PHOSPHOKINASE 261 U/L (26-192); CREATININE FOR GFR 0.74 MG/DL (0.55-1.30); ETHYL ALCOHOL (ETHANOL) < 0.003 % (0.000-0.010); GLOMERULAR FILTRATION RATE > 60.0 (>45); GLUCOSE, FASTING 95 MG/DL (70-100); MB/CK RELATIVE INDEX 1.61 (< OR =4); POTASSIUM SERUM 5.4 MEQ/L (3.5-5.1); SODIUM LEVEL 140 MEQ/L (136-145); TOTAL PROTEIN 6.5 GM/DL (6.4-8.2); TROPONIN I < 0.02 NG/ML (< 0.10)
[2020-08-01 00:20] VITALS: BP 166/83
--- NOTE | 2020-08-01 08:01 | ECGEPIP ---
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
== END 2020-08-01 00:44 | disposition home or self-care (01) ==
LOC: M ED 20:25
DX: S22.010A Wedge compression fracture of first thoracic vertebra, initial encounter for closed fracture (principal); S80.212A Abrasion, left knee, initial encounter; S80.811A Abrasion, right lower leg, initial encounter; W18.30XA Fall on same level, unspecified, initial encounter; Y92.098 Other place in other non-institutional residence as the place of occurrence of the external cause; R42 Dizziness and giddiness; I10 Essential (primary) hypertension; E11.9 Type 2 diabetes mellitus without complications; G62.9 Polyneuropathy, unspecified; L94.9 Localized connective tissue disorder, unspecified
CPT/HCPCS: 71045; 72131; 72170; 73560; 73590; 80048; 80076; 80307; 81001; 82550; 82553; 84484; 85025; 87086; 93005; 99284; G0480

== ENCOUNTER → 2020-08-18 | Outpatient (CLI) | payer BC ==
--- NOTE | 2020-08-21 00:40 | ECWPNPC ---
PATIENT NAME: MEGGAN KRUGER : 1960 GENDER: FEMALE VISIT DATE: 08/18/2020 DISCHARGE DATE: 08/18/20 0956 VISIT LOCKED DATE TIME: PHYSICIAN: NUHA GODINEZ PHYSICIAN PAGER NO: ACTIVE RESOURCE: NUHA GODINEZ REASON FOR APPOINTMENT 1. BACK PAIN- WILL NEED HELP WALKING IN & OUT HISTORY OF PRESENT ILLNESS GENERAL: 60 YEAR-OLD FEMALE REFERRED BY DR. CUBA [facility] FOR LOW BACK PAIN. HISTORY OF FALL INJURY X2. FELL A YEAR AGO AND WAS DIAGNOSED WITH A COMPRESSION FRACTURE. WENT THROUGH PHYSICAL THERAPY AND BRACING AND PAIN IMPROVED. FELL 3 WEEKS AGO AND PAIN IN HER LOWER BACK RETURNED. PAIN IS ON THE LEFT SIDE RADIATING INTO HER BUTTOCK. WAS SEEN AT THE EMERGENCY ROOM. CT SCANS OF THE LUMBAR SPINE ARE REVIEWED. SHOWING AGAIN COMPRESSION FRACTURE AT L1. MRI OF THE LS-SPINE DONE PRIOR TO FALLING SHOWING MULTILEVEL FACET ARTHROPATHY WELL MODERATE MID LUMBAR SPINAL STENOSIS. PATIENT IS ON BIOLOGICS FOR MIXED CONNECTIVE TISSUE DISORDER. DISCUSSED TREATMENT OPTIONS. SHE DOES NOT WANT TO BE OFF OF BIOLOGICS AND IS CONCERNED ABOUT LOWERED IMMUNE STATUS WITH INJECTIONS PLUS. SHE WILL CONTINUE CARE POST INJURY WITH PRIMARY CARE PROVIDER. SHE WILL CONTINUE CARE WITH RHEUMATOLOGY AT THIS POINT. SHE MAY CALL US WHEN COVID 19 ISSUES ARE LESS. - - -. FALL RISK SCREENING: SCREENING :ONE FALL WITH INJURY IN THE PAST YEAR FALL IN JULY - LED HER TO THE ED WITH L1 COMPRESSION FRACTURE. PAIN SCREENING: PATIENT HAS A COMPLAINT OF ACUTE OR CHRONIC PAIN :YES LOCATION OF PAIN:LOW BACK, LEFT HIP INTENSITY OF PAIN (SCALE OF 1 TO 10):5 WHAT DOES YOUR PAIN FEEL LIKE:INTERMITTENT, SHOOTING DURATION:MAINLY DURING THE DAY, INTERMITTENT PAIN IS INCREASED BY:ACTIVITIES, PROLONGED STANDING WALKING PAIN IS DECREASED BY:OTHERS HEAT NURSING NOTE: - - -. PAIN CENTER INTAKE QUESTIONS: DO YOU HAVE A HISTORY OF MRSA? :NO DO YOU TAKE A BLOOD THINNERS? :NO DO YOU HAVE ANY BLEEDING DISORDERS? :NO ANY NEW NUMBNESS OR WEAKNESS IN YOUR LEGS OR ARMS? :NO ANY PACEMAKER,DEFIBRILLATOR, OR DORSAL COLUMN STIMULATOR? :NO DO YOU HAVE ANY RASHES OR OPEN SORES? :NO ARE YOU ALLERGIC TO IV DYE? :NO ARE YOU DIABETIC? :YES TYPE II ANY NEW PROBLEMS WITH YOUR MEDICATIONS? :NO HAVE YOU RECEIVED A VACCINE IN THE PAST 30 DAYS? :NO DO YOU PLAN TO RECEIVE A VACCINE IN THE NEXT 21 DAYS? :NO DO YOU NEED ANY PRESCRIPTION? :NO DO YOU TAKE ANY IMMUNOSUPPRESSIVE MEDICATIONS? :YES HYDROXYCHLOROQUIN CURRENT MEDICATIONS TAKING MOBIC 15 MG TABLET 1 TABLET ORALLY ONCE A DAY NEEDED FOR PAIN TAKING MELATONIN 10 MG TABLET 1 TABLET AT BEDTIME NEEDED WITH FOOD ORALLY ONCE A DAY TAKING ASPIRIN 81 MG TABLET 1 TABLET ORALLY ONCE A DAY TAKING FISH OIL 1200 MG CAPSULE 1 CAPSULE ORALLY ONCE DAILY TAKING PLAQUENIL 200 MG TABLET 1 TABLET WITH FOOD OR MILK ORALLY ONCE A DAY TAKING SYNTHROID 175 MCG TABLET 1 TABLET ON AN EMPTY STOMACH IN THE MORNING ORALLY GURU ONCE A DAY TAKING LISINOPRIL 20 MG TABLET 1 TABLET ORALLY DAILY TAKING METFORMIN HCL 500 MG TABLET 1 TABLET WITH MEALS ORALLY TWICE A DAY TAKING VENLAFAXINE HCL ER 37.5 MG TABLET EXTENDED RELEASE 24 HOUR 1 TAB ORALLY ONCE A DAY TAKING LEFLUNOMIDE 20 MG TABLET 1 TABLET ORALLY ONCE A DAY NOT-TAKING AMOXICILLIN 500 MG CAPSULE 2 CAPSULES ORALLY TID NOT-TAKING COLACE 100 MG CAPSULE 1 CAPSULE ORALLY TWICE A DAY NEEDED FOR CONSTIPATION NOT-TAKING MIRALAX 1 PACKET 1 PACKET MIXED WITH 8 OUNCES OF FLUID ORALLY ONCE A DAY NOT-TAKING MAGNESIUM 500 MG TABLET 1 TABLET WITH A MEAL ORALLY ONCE A DAY NOT-TAKING BIOTIN 5000 MCG TABLET 1 TABLET ORALLY ONCE A DAY NOT-TAKING GINSENG 200 MG CAPSULE 1 CAP(S) ORALLY DAILY NOT-TAKING POTASSIUM CHLORIDE ER 10 MEQ TABLET EXTENDED RELEASE 1 TABLET ORALLY DAILY NOT-TAKING VITAMIN D3 125 MCG (5000 UT) TABLET 1 CAPSULE ORALLY ONCE A DAY NOT-TAKING ROSUVASTATIN CALCIUM 5MG TABLET 1 TABLET ORALLY DAILY MEDICATION LIST REVIEWED AND RECONCILED WITH THE PATIENT PAST MEDICAL HISTORY HYPOTHYROIDISM INSOMNIA HYPERTENSION IMPAIRED FASTING GLUCOSE HYPERCHOLESTEROLEMIA ANXIETY AND DEPRESSION ADRENAL ADENOMA OTHER INTERVERTEBRAL DISC DEGENERATION, LUMBAR REGION NICOTINE DEPENDENCE SENSORY NEUROPATHY MIXED CONNECTIVE TISSUE DISEASE LOW MAGNESIUM LEVELS WEIGHT LOSS LUNG NODULE < 6CM ON CT ELEVATED LIVER FUNCTION TESTS AUTOIMMUNE DISORDER TYPE II DM ALLERGIES LIPITOR: MUSCLE CRAMPS - SIDE EFFECTS LEXAPRO: PATIENT CANNOT RECALL - SIDE EFFECTS SURGICAL HISTORY 11/1984 LAPARASCOPIC CHOLECYSTECTOMY 05/2000 HYSTERECTOMY-HAS OVARIES AND CERVIX 12/1993 COLONOSCOPY WITH POLYPECTOMY 03/2014 COLONOSCOPY WITH POLYPECTOMY 12/17/2015 COLONOSCOPY WITH POLYPECTOMY 03/21/2019 FAMILY HISTORY FATHER AT AGE 63 OF LUNG CANCER.MOTHER IN HER 60S OF DIABETIC COMPLICATIONS. BROTHER AGE 55 OF UROTHELIAL MALIGNANCY. 2 SISTERS ARE WELL. WITH 3 HEALTHY CHILDREN; A SON AGE 12 OF MULTIPLE RELATED ISSUES. SOCIAL HISTORY GENERAL: TOBACCO USE ARE YOU A:CURRENT SMOKER ARE YOU INTERESTED IN QUITTING?THINKING ABOUT QUITTING STATES SHE HAS BEEN CUTTING BACK. COUNSELED THE PATIENT ON SMOKING CESSATION, EDUCATION [id number]/18/2020 HOW MANY CIGARETTES A DAY DO YOU SMOKE?6-10 HOW SOON AFTER YOU WAKE UP DO YOU SMOKE YOUR FIRST CIGARETTE?6-30 MIN HOW OFTEN DO YOU SMOKE CIGARETTES?EVERY DAY PATIENT COUNSELED ON THE DANGERS OF TOBACCO USE AND URGED TO QUIT:08/18/2020 ADDITIONAL FINDINGS: TOBACCO USERLIGHT CIGARETTE SMOKER ((1-9 CIGS/DAY) LATEX QUESTIONNAIRE LATEX ALLERGY : HAVE YOU EVER DEVELOPED ANY TYPE OF REACTION AFTER HANDLING LATEX PRODUCTS SUCH RUBBER GLOVES, CONDOMS, DIAPHRAGMS, BALLOONS, SOCKS, OR UNDERWEAR?NO LATEX ALLERGY : HAVE YOU EVER DEVELOPED ANY TYPE OF REACTION DURING OR AFTER DENTAL APPOINTMENT, VAGINAL/RECTAL EXAMINATION, SURGICAL PROCEDURE, OR ANY OTHER EXPOSURE?NO LATEX RISK : HAVE YOU EVER HAD ANY DIFFICULTY BREATHING OR HIVES AFTER EATING OR HANDLING ANY FRUITS, OR VEGETABLES; SUCH KIWI, BANANAS, STONE FRUITS, OR CHESTNUTSNO LATEX RISK : DO YOU HAVE A PREVIOUS PERSONAL HISTORY OF MORE THAN NINE SURGERIES, SPINA BIFIDA, OR REPEATED CATHERIZATIONS? NO LATEX RISK : ARE YOU FREQUENTLY EXPOSED TO LATEX PRODUCTS IN YOUR OCCUPATION?NO DATE ASKED : 08/18/2020 ALCOHOL SCREENING DID YOU HAVE A DRINK CONTAINING ALCOHOL IN THE PAST YEAR?NO POINTS0 INTERPRETATIONNEGATIVE RECREATIONAL DRUG USE DRUG USE?NO CAFFEINE 4 CUPS OF COFFEE, 2 CUPS OF TEA, AND 2 CANS OF SODA DAILY. SEXUAL HX HAD SEX IN THE LAST 12 MONTHS (VAGINAL, ORAL, OR ANAL)?NO HAVE YOU EVER HAD AN STD?NO HIV / HEP-C SCREENING HIV TEST OFFERED TO PATIENT:YES DATE OFFERED:04/16/2018 TEST ACCEPTED:NO HEP-C TEST OFFERED TO PATIENT:YES DATE OFFERED:04/16/2018 REASON:PATIENT DECLINED TEST ACCEPTED:NO REASON:PATIENT DECLINED BROCHURE PROVIDED TO PATIENTYES GNOSTICIST GNOSTICIST NO RASTAFARI BELIEFS THAT WOULD IMPACT HEALTH CARE. 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 DIET: CARBOHYDRATE CONTROLLED. EXERCISE: NO REGULAR EXERCISE. MARITAL STATUS: . PAIN CLINIC PFS, CLERGY, PUBLIC HEALTH REFERRALS HAS THE PATIENT BEEN EDUCATED REGARDING HIS/HER PLAN OF CARE?YES HAS THE PATIENT BEEN EDUCATED REGARDING PAIN, THE RISK FOR PAIN, THE IMPORTANCE OF EFFECTIVE PAIN MANAGEMENT, AND THE PAIN ASSESSMENT PROCESS?YES HOUSING: LIVES WITH SON. ADVANCE DIRECTIVE ADVANCE DIRECTIVE DISCUSSED WITH PATIENT:YES PATIENT HAS NO ADVANCED DIRECTIVES AND DECLINES INFORMATION ON HCP AT THIS TIME. HOSPITALIZATION/MAJOR DIAGNOSTIC PROCEDURE [facility]-SEPSIS SECONDARY TO ACUTE LEFT PYELONEPHRITIS, HYPOMAGNESEMIA, DM2, MILD ACUTE RENAL FAILURE 03/05-03/09/2016 [facility] ED-ABRASION OF SCALP 10/24/2018 [facility] ED-ILEUS 02/27/2019 [facility] ED-CONSTIPATION 03/02/2019 REVIEW OF SYSTEMS CONSTITUTIONAL: ANY RECENT FEVER NO . CHILLS NO . WEIGHT CHANGE OF UNKNOWN REASONS NO . GASTROENTEROLOGY: NEW UNEXPLAINABLE CHANGES IN BOWEL CONTROL NO . CONSTIPATION NO . GENITOURINARY: ANY NEW CHANGE IN BLADDER CONTROL? NO . NEUROLOGY: NEW ONSET DIZZINESS OR NEUROLOGICAL CHANGES NOT MENTIONED NO . NEW NUMBNESS OR PAIN PATTERNS NOT MENTIONED AND PERTINENT TO TODAY'S VISIT NO . CARDIOLOGY: NEW CHEST PRESSURE NO . NEW CHEST PAIN NO . RESPIRATORY: UNEXPLAINABLE COUGH NO . NEW SHORTNESS OF BREATH NO . VITAL SIGNS WT 150 LBS, HT 60 IN, BMI 29.29 INDEX, BP 142/68 MM HG, HR 79 /MIN, RR 18 /MIN, TEMP 97.7 F, OXYGEN SAT % 99%, SAFE IN ENV? (Y/N) Y, NA INITIALS UT 08:56, REVIEWED BY: JSJ. EMELINA RN. EXAMINATION GENERAL EXAMINATION: GENERAL AWAKE,ALERT ,PLEASANT . PSYCH AFFECT NORMAL . LUNGS: LUNG FOLEY ARE CLEAR TO AUSCULTATION BILATERALLY. GOOD MOVEMENT OF AIR . HEART: S1, S2 IN A REGULAR RATE AND RHYTHM. NO SIGNIFICANT MURMURS, RUBS OR GALLOPS NOTED . LUMBAR: PALPATION: + FOR PAIN OVER L/S SPINE. + FOR PAIN OVER L/S PARASPINALS. ASSESSMENTS DEGENERATIVE LUMBAR SPINAL STENOSIS - M48.061 (PRIMARY) SACROILIITIS - M46.1 TREATMENT DEGENERATIVE LUMBAR SPINAL STENOSIS NOTES: PATIENT WILL RETURN TO OUR CLINIC IF SHE WANTS TO PURSUE INJECTIONS FOR CHRONIC PAIN. PROCEDURE CODES FA211 ESTABILISHED PATIENT [facility] CHARGE DISPOSITION & COMMUNICATION FOLLOW UP PATIENT WILL CALL (REASON: SPINAL STENOSIS/COMPRESSION FRACTURE LUMBAR SPINE/SACROILIITIS) ELECTRONICALLY SIGNED BY BRYAN FRIEND ON 08/20/2020 AT 01:51 PM EST DISCLAIMER : THIS IS A VISIT SUMMARY EXTRACTED FROM THE [facility] CHART. IT IS NOT A COPY OF THE [employer] PROGRESS NOTE. AME
== END ==
LOC: M PAIN 08:30
PROVIDERS: ATTEND Nurse Practitioner Family
DX: M48.061 Spinal stenosis, lumbar region without neurogenic claudication (principal); M46.1 Sacroiliitis, not elsewhere classified; E03.9 Hypothyroidism, unspecified; G47.00 Insomnia, unspecified; I10 Essential (primary) hypertension; E78.00 Pure hypercholesterolemia, unspecified; F41.9 Anxiety disorder, unspecified; F32.9 Major depressive disorder, single episode, unspecified; F17.210 Nicotine dependence, cigarettes, uncomplicated; M51.36 Other intervertebral disc degeneration, lumbar region; E11.9 Type 2 diabetes mellitus without complications; Z79.82 Long term (current) use of aspirin; Z79.84 Long term (current) use of oral hypoglycemic drugs; Z79.899 Other long term (current) drug therapy; Z88.8 Allergy status to other drugs, medicaments and biological substances

== ENCOUNTER → 2021-03-08 | Outpatient (CLI) | payer BC ==
[~2021-03-08] MED LIST changes: -LISI-538 PO; +LISI20TA33 PO; -MAG400TA PO; +MAGN400T35 PO
--- NOTE | 2021-03-08 15:08 | REP ---
INDICATION: Z12.39 SCREENING MAMMO. COMPARISON: 12/08/2019 as well as other prior exams. TECHNIQUE: MLO and CC views bilateral breasts performed. Tomosynthesis was not performed due to patient condition. FINDINGS: There is mild fibroglandular tissue bilaterally. There is an oval smoothly marginated nodule in the inferior right breast which is stable, unchanged in appearance. No new breast mass is seen. There are no suspicious clusters of microcalcifications. Biopsy clip is again seen posteriorly in the upper left breast. There is a mildly enlarged lymph node in left axilla measuring 1.4 cm in short axis. The patient has a history of COVID vaccination in the left arm, the last dose was 01/01/2021. The Volpara volumetric breast density pattern is B. IMPRESSION: BIRADS/ACR category 3, probably benign. No new breast abnormality is seen as discussed above. However there is a mildly enlarged left axillary lymph node with a short axis dimension of 1.4 cm. The last COVID vaccination dose in the left arm was 01/01/2021. Recommend follow-up left axillary ultrasound in 6-8 weeks. [facility] 6.[facility]%. This mammogram was interpreted with the aid of an FDA-approved computer-aided detection system. The patient states she had a clinical breast exam in over 1 year ago. The patient letter being requested is M3. RECOMMENDATION: Recommend left axillary ultrasound in 6-8 weeks. <Electronically signed by Rashaun Rosario > 03/08/21 [id number]
--- NOTE | 2021-03-08 17:49 | DEXAMM ---
INDICATION: Z87.81 HX OF VERTEBRAL COMPRESSION FX. COMPARISON: 10/27/2016 as well as other prior exams. TECHNIQUE: Bone density was measured using dual-energy x-ray absorptiometry (DEXA). FINDINGS: AP SPINE L1-L4 BMD 1.135 g/cm2 Young Adult T-Score -0.5 Age Matched Z-Score 0.8. LT FEMUR, TOTAL BMD 0.882 g/cm2 Young Adult T-Score -1.0 Age Matched Z-Score 0.0. LT NECK BMD 0.911 g/cm2 Young Adult T-Score -0.9 Age Matched Z-Score 0.4. RT FEMUR, TOTAL BMD 0.840 g/cm2 Young Adult T-Score -1.3 Age Matched Z-Score -0.4. RT NECK BMD 0.868 g/cm2 Young Adult T-Score -1.2 Age Matched Z-Score 0.0. IMPRESSION: There is normal bone density of the spine. There is normal bone density of the left hip. There is low bone density of the right hip. The density of the spine has increased 5.5% since the initial exam on 01/18/2009. The density of the spine increased 0.8% since most recent exam on 10/27/2016. The density of the left hip has decreased 9.2% since initial exam on 01/18/2009. The density of the left hip has decreased 8.0% since most recent exam on 10/27/2016. The density of the right hip has decreased 3.9% since the initial exam on 01/18/2009. The density of the right hip has increased 0.5% since the most recent exam on 10/27/2016. FOLLOW-UP: Recommendation for the next bone density exam: 2 years. <Electronically signed by Rashaun Rosario > 03/08/21 [id number]
== END ==
LOC: M WHC 13:04
PROVIDERS: ATTEND Internal Medicine
DX: R92.8 Other abnormal and inconclusive findings on diagnostic imaging of breast (principal); M85.80 Other specified disorders of bone density and structure, unspecified site; Z87.81 Personal history of (healed) traumatic fracture

== ENCOUNTER → 2021-04-26 | Outpatient (CLI) | payer BC ==
[~2021-04-26] MED LIST changes: +ISOVUE-370 76% 100ML VIAL As Ordered ONE
--- NOTE | 2021-04-26 18:13 | REP ---
INDICATION: LUNG NODULE. COMPARISON: 04/08/2019 TECHNIQUE: Bolus 75 mL Isovue 370 scanning through the chest with coronal and sagittal reconstructions provided. FINDINGS: On image 57 in the left lower lobe there is a 3 x 4 mm stable noncalcified nodule. Some dependent atelectatic changes are seen bilaterally throughout the mid and lower lung zones posteriorly there are no other nodules, masses, pleural effusion, calcified pleural plaque nor acute infiltrate pneumothorax or pneumomediastinum. The heart is not enlarged. There is no pericardial thickening or effusion. There is atherosclerotic calcification of the ascending, arch and descending aorta without aneurysm or dissection. There is no pathologic sized mediastinal, hilar, axillary or supraclavicular adenopathy. Tracheal airway unremarkable. Bone windows show the sternum, manubrium, medial clavicles, visualized portions scapulae, humeral heads, ribs and the thoracic spine without acute finding. There is a grade 2-3 compression deformity of the superior endplate of L1 which has increased from the previous study where it was grade 1-2. This finding is not acute. Left adrenal gland shows a stable of 3 cm nodule dating back many years. The right adrenal gland was normal. Liver and spleen unremarkable. Clips from prior cholecystectomy are noted. Pancreas intact. No hiatal hernia. Stomach unremarkable. Visualized bowel loops intact. IMPRESSION: 1. Stable noncalcified 3 x 4 mm nodule in the left lower lobe for several years. With stability for over 2 years, follow-up for this finding is not necessary unless she is at high risk for development of lung cancer. In that case low-dose screening lung CT on an annual basis would be recommended. 2. Grade 2-3 compression deformity of L1 has progressed from grade 1-[address] 2 years ago. This is not an acute change. No other significant bony finding. 3. Stable 3 cm adrenal nodule for many years. 4. No other significant or acute finding. <Electronically signed by Mason Cordova > 04/26/21 [id number]
== END ==
LOC: M RAD 16:45
PROVIDERS: ATTEND Internal Medicine
DX: R91.1 Solitary pulmonary nodule (principal)

== ENCOUNTER → 2021-11-18 | Outpatient (CLI) | payer BC ==
[~2021-11-18] MED LIST changes: -ISOVUE-370 76% 100ML VIAL As Ordered ONE
== END ==
LOC: M WHC 13:29
PROVIDERS: ATTEND Internal Medicine
DX: R92.8 Other abnormal and inconclusive findings on diagnostic imaging of breast (principal); R59.0 Localized enlarged lymph nodes

== ENCOUNTER → 2022-04-14 | Outpatient (CLI) | payer BC | LOC: M WHC 12:04 | PROVIDERS: ATTEND Internal Medicine | DX: Z12.31 Encounter for screening mammogram for malignant neoplasm of breast (principal); R59.0 Localized enlarged lymph nodes ==

== ENCOUNTER → 2022-05-01 | Outpatient (CLI) | payer BC ==
[~2022-05-01] MED LIST changes: +GABA-282
== END ==
LOC: M RAD 12:20
PROVIDERS: ATTEND Internal Medicine
DX: R91.1 Solitary pulmonary nodule (principal); J43.9 Emphysema, unspecified; F17.211 Nicotine dependence, cigarettes, in remission

== ENCOUNTER → 2022-05-03 | Outpatient (CLI) | payer BC | LOC: M LABSMTC 10:26 | PROVIDERS: ATTEND Anesthesiology | DX: Z01.818 Encounter for other preprocedural examination (principal); Z11.52 Encounter for screening for COVID-19 ==

== ENCOUNTER 2022-05-08 06:33 | Day surgery (SDC) | payer BC ==
[~2022-05-08] VITALS: Ht 152.4 cm; Wt 70.3 kg
[~2022-05-08 06:33] MED LIST changes: +NS 1,000 ML IV ONE
[2022-05-08] MEDS ORDERED: propofoL 200 MG/20 ML VIAL As Ordered ONE (07:42)
[2022-05-08] MEDS ORDERED: LIDOCAINE 2% 100MG/5ML SDV (FOR ANES.) As Ordered ONE (07:42)
[2022-05-08 08:20] VITALS: BP 126/74
== END 2022-05-08 08:29 | disposition home or self-care (01) ==
LOC: M OPP 06:33
PROVIDERS: ATTEND Internal Medicine Gastroenterology
DX: Z86.010 Personal history of colon polyps (principal); K64.8 Other hemorrhoids; I10 Essential (primary) hypertension; E78.5 Hyperlipidemia, unspecified; E11.9 Type 2 diabetes mellitus without complications; E03.9 Hypothyroidism, unspecified; M19.90 Unspecified osteoarthritis, unspecified site; F41.9 Anxiety disorder, unspecified; F32.A Depression, unspecified; M32.9 Systemic lupus erythematosus, unspecified; F17.210 Nicotine dependence, cigarettes, uncomplicated; Z88.8 Allergy status to other drugs, medicaments and biological substances; Z79.84 Long term (current) use of oral hypoglycemic drugs; Z79.890 Hormone replacement therapy; Z79.899 Other long term (current) drug therapy

== ENCOUNTER → 2023-09-26 | Outpatient (CLI) | payer MEDICARE, BC ==
[~2023-09-26] MED LIST changes: -BIOT50004 PO; +BIOT5CAP8 PO; -HYDR200T3 PO; +HYDR200T46 PO; -K-TA10TA2 PO; -NS 1,000 ML IV ONE; +POTA-165 PO
== END ==
LOC: M WHC 10:47
PROVIDERS: ATTEND Nurse Practitioner Family
DX: Z12.31 Encounter for screening mammogram for malignant neoplasm of breast (principal)

== ENCOUNTER → 2023-09-28 | Outpatient (CLI) | payer MEDICARE, BC | LOC: M RAD 13:33 | PROVIDERS: ATTEND Internal Medicine Pulmonary Disease | DX: Z12.2 Encounter for screening for malignant neoplasm of respiratory organs (principal); Z87.891 Personal history of nicotine dependence; R91.8 Other nonspecific abnormal finding of lung field ==

== ENCOUNTER → 2023-10-16 | Outpatient (REF) | payer MEDICARE, BC ==
[~2023-10-16] MED LIST changes: -LEFL1TAB4; -LEFL1TAB4 PO; +LEFL20TA15; +LEFL20TA15 PO
[2023-10-16 09:36] LABS: BASO % 0.2 % (0.0-1.0); EOS # 0.1 10^3/uL (0.0-0.5); EOS % 1.2 % (0.0-3.0); HEMATOCRIT 41.3 % (36.0-47.0); HEMOGLOBIN 13.9 g/dl (12.0-15.5); LYMPH # 2.6 10^3/uL (1.5-5.0); LYMPH % 31.7 % (24.0-44.0); MEAN CORPUSCULAR HEMOGLOBIN 30.4 pg (27.0-33.0); MEAN CORPUSCULAR HGB CONC 33.7 g/dl (32.0-36.5); MEAN CORPUSCULAR VOLUME 90.4 fl (80.0-96.0); MONO # 0.5 10^3/uL (0.0-0.8); MONO % 5.8 % (2.0-8.0); NEUTROPHILS # 4.9 10^3/uL (1.5-8.5); NEUTROPHILS % 60.7 % (36.0-66.0); PLATELET COUNT, AUTOMATED 306 10^3/uL (150-450); RED BLOOD COUNT 4.57 10^6/uL (4.00-5.40); WHITE BLOOD COUNT 8.1 10^3/uL (4.0-10.0)
[2023-10-16 09:47] LABS: ALBUMIN 3.5 G/DL (3.2-5.2); ALKALINE PHOSPHATASE 119 U/L (46-116); ALT/SGPT 29 U/L (7.0-40); AST/SGOT 25 U/L (<34); BILIRUBIN,TOTAL 0.3 MG/DL (0.3-1.2); BLOOD UREA NITROGEN 14 MG/DL (9-23); CALCIUM LEVEL 8.9 MG/DL (8.3-10.6); CARBON DIOXIDE LEVEL 28 MMOL/L (20-31); CHLORIDE LEVEL 108 MMOL/L (98-107); CREATININE FOR GFR 0.79 MG/DL (0.55-1.30); GLOMERULAR FILTRATION RATE > 60.0 (>45); GLUCOSE, FASTING 105 MG/DL (74-106); POTASSIUM SERUM 4.3 MMOL/L (3.5-5.1); SODIUM LEVEL 142 MMOL/L (136-145); TOTAL PROTEIN 6.2 G/DL (5.7-8.2)
[2023-10-16 10:13] LABS: HIV 1&2 SCREEN NEGATIVE (NEGATIVE)
[2023-10-16 10:22] LABS: HEPATITIS B CORE ANTIBODY IGM NEGATIVE (NEGATIVE); HEPATITIS C VIRUS ABY INDEX < 0.02 INDEX (<0.8)
== END ==
LOC: M SFHCDERM 08:16
PROVIDERS: ATTEND Nurse Practitioner Family
DX: L40.9 Psoriasis, unspecified (principal); Z11.3 Encounter for screening for infections with a predominantly sexual mode of transmission; Z11.59 Encounter for screening for other viral diseases; Z72.89 Other problems related to lifestyle

== ENCOUNTER → 2023-10-16 | Outpatient (CLI) | payer MEDICARE, BC | LOC: M LAB 08:22 | PROVIDERS: ATTEND Nurse Practitioner Family | DX: Z53.9 Procedure and treatment not carried out, unspecified reason (principal) ==

== ENCOUNTER → 2023-11-12 | Outpatient (CLI) | payer MEDICARE, BC | LOC: M PLARAD 11:41 | PROVIDERS: ATTEND Internal Medicine Pulmonary Disease | DX: R91.1 Solitary pulmonary nodule (principal) | CPT/HCPCS: 78815; A9552 ==

== ENCOUNTER → 2023-11-19 | Outpatient (CLI) | payer MEDICARE, BC | LOC: M PLAIMG 08:09 | PROVIDERS: ATTEND Internal Medicine Pulmonary Disease | DX: R91.1 Solitary pulmonary nodule (principal) ==

== ENCOUNTER 2023-12-05 06:01 | Day surgery (SDC) | payer MEDICARE, BC ==
[~2023-12-05] VITALS: Ht 152.4 cm; Wt 68.7 kg
[~2023-12-05 06:01] MED LIST changes: +B-12100011 SL; -GABA-282; +GABA-282 PO; +KP F1200 PO; +LEVO150T7 PO; +POTA1TAB23 PO; +RA M500C PO; +VENL75CA47 PO; +VITA100093 PO
[2023-12-05] MEDS ORDERED: LR 1,000 ML IV SCH ×2 (06:45→08:55)
[2023-12-05] MEDS ORDERED: MIDAZOLAM INJ 2MG/2ML VIAL As Ordered ONE (07:21)
[2023-12-05] MEDS ORDERED: ONDANSETRON 4MG 2ML VIAL As Ordered ONE (07:22)
[2023-12-05] MEDS ORDERED: ROCURONIUM BROMIDE 50MG/5ML VIAL As Ordered ONE (07:22)
[2023-12-05] MEDS ORDERED: propofoL 200 MG/20 ML VIAL As Ordered ONE (07:22)
[2023-12-05] MEDS ORDERED: LIDOCAINE 2% 100MG/5ML SDV (FOR ANES.) As Ordered ONE (07:22)
[2023-12-05] MEDS ORDERED: fentaNYL 100 MCG/2 ML INJECTION As Ordered ONE (07:22)
[2023-12-05] MEDS ORDERED: SUGAMMADEX SODIUM 500 MG/5 ML VIAL (BRIDION) As Ordered ONE (08:08)
[2023-12-05] MEDS ORDERED: dexmedeTOMIDine (4MCG/ML)200MCG/50ML BTL (PRECEDEX) As Ordered ONE (08:15)
[2023-12-05] MEDS ORDERED: ACETAMINOPHEN 1000MG 100ML IV BAG As Ordered ONE (08:16)
[2023-12-05] MEDS ORDERED: ePHEDrine SULFATE 25 MG/5 ML(5MG/ML) SYRINGE As Ordered ONE (08:33)
[2023-12-05] MEDS ORDERED: PHENYLephrine 500MCG 5ML (100MCG/ML) SYRINGE As Ordered ONE (08:33)
[2023-12-05] MEDS: CETACAINE SPRAY 5GM As Ordered ONE (08:33)
[2023-12-05] MEDS: THROMBIN 5,000 UNITS VIAL As Ordered ONE (08:43)
[2023-12-05] MEDS: EPINEPHrine 1MG/10ML SYRINGE 1.5IN As Ordered ONE (08:43)
[2023-12-05] MEDS ORDERED: oxyCODONE 5MG TAB PO PRN (08:55)
[2023-12-05] MEDS ORDERED: ONDANSETRON 4MG 2ML VIAL IV PRN (08:55)
[2023-12-05] MEDS ORDERED: fentaNYL 100 MCG/2 ML INJECTION IV PRN (08:55)
[2023-12-05] MEDS ORDERED: HYDROMORPHONE HCL 0.5 MG/ 0.5 ML SYRINGE IV PRN (08:55)
[2023-12-05 10:12] VITALS: BP 132/70; TEMP 97.9; O2SAT 100
== END 2023-12-05 10:25 | disposition home or self-care (01) ==
LOC: M SDC 06:01
PROVIDERS: ATTEND Internal Medicine Pulmonary Disease
DX: J84.10 Pulmonary fibrosis, unspecified (principal); J42 Unspecified chronic bronchitis; J47.9 Bronchiectasis, uncomplicated; E11.9 Type 2 diabetes mellitus without complications; Z87.891 Personal history of nicotine dependence; Z88.8 Allergy status to other drugs, medicaments and biological substances; Z79.899 Other long term (current) drug therapy
CPT/HCPCS: 31624; 31628; 31654; 71045; 76000; 88108; 88305; 88313; 93005; J0131; J0171; J1100; J2250; J2371; J2405; J3010; S2900

== ENCOUNTER → 2024-01-22 | Outpatient (CLI) | payer MEDICARE, BC ==
[~2024-01-22] MED LIST changes: +ALBU8.5H INH; +BUDE10.22 INH
== END ==
LOC: M ONCR 08:36
PROVIDERS: ATTEND General Practice
DX: C34.12 Malignant neoplasm of upper lobe, left bronchus or lung (principal); F17.210 Nicotine dependence, cigarettes, uncomplicated; Z71.2 Person consulting for explanation of examination or test findings; Z79.84 Long term (current) use of oral hypoglycemic drugs; Z79.890 Hormone replacement therapy; Z79.899 Other long term (current) drug therapy; Z80.1 Family history of malignant neoplasm of trachea, bronchus and lung; Z88.8 Allergy status to other drugs, medicaments and biological substances; Z80.51 Family history of malignant neoplasm of kidney; Z90.49 Acquired absence of other specified parts of digestive tract; Z90.710 Acquired absence of both cervix and uterus

== ENCOUNTER 2024-01-28 10:11 | Outpatient (RCR) | payer MEDICARE, BC | END 2024-01-29 | LOC: M ONCR 10:11 | PROVIDERS: ATTEND General Practice | DX: Z51.0 Encounter for antineoplastic radiation therapy (principal); C34.12 Malignant neoplasm of upper lobe, left bronchus or lung ==

== ENCOUNTER 2024-02-15 12:01 | Outpatient (RCR) | payer MEDICARE, BC | END 2024-02-29 | LOC: M ONCR 12:01 | PROVIDERS: ATTEND General Practice | DX: Z51.0 Encounter for antineoplastic radiation therapy (principal); C34.12 Malignant neoplasm of upper lobe, left bronchus or lung ==

== ENCOUNTER → 2024-03-21 | Outpatient (REF) | payer MEDICARE, BC ==
[2024-03-21 11:04] LABS: HEMATOCRIT 38.6 % (36.0-47.0); HEMOGLOBIN 12.9 g/dl (12.0-15.5); MEAN CORPUSCULAR HEMOGLOBIN 30.6 pg (27.0-33.0); MEAN CORPUSCULAR HGB CONC 33.4 g/dl (32.0-36.5); MEAN CORPUSCULAR VOLUME 91.5 fl (80.0-96.0); PLATELET COUNT, AUTOMATED 285 10^3/uL (150-450); RED BLOOD COUNT 4.22 10^6/uL (4.00-5.40); WHITE BLOOD COUNT 7.3 10^3/uL (4.0-10.0)
[2024-03-21 11:33] LABS: HEMOGLOBIN A1c 5.5 % (4.0-6.0)
[2024-03-21 11:36] LABS: C REACTIVE PROTEIN QUANTITATIV < 0.40 MG/DL (<1.0); CREATININE, URINE 37.5 MG/DL
[2024-03-21 11:37] LABS: MAU/CREAT RATIO 34.6 MCG/MG (0.0-30.0)
[2024-03-21 11:38] LABS: ALBUMIN 3.4 G/DL (3.2-5.2); ALKALINE PHOSPHATASE 128 U/L (46-116); ALT/SGPT 33 U/L (7.0-40); AST/SGOT 25 U/L (<34); BILIRUBIN,TOTAL 0.4 MG/DL (0.3-1.2); BLOOD UREA NITROGEN 13 MG/DL (9-23); CALCIUM LEVEL 9.3 MG/DL (8.3-10.6); CARBON DIOXIDE LEVEL 30 MMOL/L (20-31); CHLORIDE LEVEL 107 MMOL/L (98-107); CHOLESTEROL LEVEL 130 MG/DL (<200); CHOLESTEROL RISK RATIO 2.51 (<5); CREATININE FOR GFR 0.76 MG/DL (0.55-1.30); GLOMERULAR FILTRATION RATE > 60.0 (>45); GLUCOSE, FASTING 93 MG/DL (74-106); HDL CHOLESTEROL 51.7 MG/DL (>40); LDL CHOLESTEROL 57.7 MG/DL (<100); NON-HDL-C 78.3 MG/DL; POTASSIUM SERUM 4.3 MMOL/L (3.5-5.1); SODIUM LEVEL 143 MMOL/L (136-145); TRIGLYCERIDES LEVEL 103 MG/DL (<150)
[2024-03-21 11:42] LABS: THYROID STIMULATING HORMONE 0.192 uIU/ML (0.55-4.78); TOTAL 25(OH) VITAMIN D 36.4 NG/ML (20.0-100.0); VITAMIN B12 LEVEL 998 PG/ML (211-911)
== END ==
LOC: M LABDRWAD 10:07
PROVIDERS: ATTEND Internal Medicine Hematology
DX: R73.01 Impaired fasting glucose (principal); E07.9 Disorder of thyroid, unspecified; E78.00 Pure hypercholesterolemia, unspecified

== ENCOUNTER → 2024-05-13 | Outpatient (CLI) | payer MEDICARE, BC ==
[~2024-05-13] MED LIST changes: +ISOVUE-370 76% 100ML VIAL As Ordered ONE
== END ==
LOC: M RAD 09:34
PROVIDERS: ATTEND General Practice
DX: C34.12 Malignant neoplasm of upper lobe, left bronchus or lung (principal)
CPT/HCPCS: 71260; Q9967

== ENCOUNTER → 2024-05-20 | Outpatient (CLI) | payer MEDICARE, BC ==
[~2024-05-20] MED LIST changes: -ISOVUE-370 76% 100ML VIAL As Ordered ONE
== END ==
LOC: M ONCR 11:26
PROVIDERS: ATTEND General Practice
DX: C34.12 Malignant neoplasm of upper lobe, left bronchus or lung (principal); L40.9 Psoriasis, unspecified; F32.A Depression, unspecified; F17.210 Nicotine dependence, cigarettes, uncomplicated; Z92.3 Personal history of irradiation; Z88.8 Allergy status to other drugs, medicaments and biological substances; Z79.890 Hormone replacement therapy; Z79.899 Other long term (current) drug therapy; Z79.84 Long term (current) use of oral hypoglycemic drugs

== ENCOUNTER → 2024-09-18 | Outpatient (REF) | payer MEDICARE, BC ==
[~2024-09-18] MED LIST changes: +GABA-1172 PO; -GABA-282 PO
== END ==
LOC: M SFHCPLAZ 16:13
DX: R53.83 Other fatigue (principal)

== ENCOUNTER → 2024-11-13 | Outpatient (CLI) | payer MEDICARE, BC | LOC: M RAD 10:11 | PROVIDERS: ATTEND General Practice | DX: C34.12 Malignant neoplasm of upper lobe, left bronchus or lung (principal) ==

== ENCOUNTER → 2024-12-03 | Outpatient (CLI) | payer MEDICARE, BC ==
[2024-12-03 11:07] LABS: ALBUMIN 3.3 G/DL (3.2-5.2); ALKALINE PHOSPHATASE 119 U/L (35-104); ALT/SGPT 39 U/L (7.0-40); AST/SGOT 28 U/L (<34); BILIRUBIN,TOTAL 0.3 MG/DL (0.3-1.2); BLOOD UREA NITROGEN 20 MG/DL (9-23); CARBON DIOXIDE LEVEL 30 MMOL/L (20-31); CHLORIDE LEVEL 106 MMOL/L (98-107); CREATININE FOR GFR 0.82 MG/DL (0.55-1.30); GLOMERULAR FILTRATION RATE > 60.0 (>45); GLUCOSE, FASTING 82 MG/DL (74-106); POTASSIUM SERUM 4.4 MMOL/L (3.5-5.1); SODIUM LEVEL 144 MMOL/L (136-145); TOTAL PROTEIN 6.5 G/DL (5.7-8.2)
== END ==
LOC: M LAB 10:00
PROVIDERS: ATTEND General Practice
DX: C34.12 Malignant neoplasm of upper lobe, left bronchus or lung (principal); D35.02 Benign neoplasm of left adrenal gland; Z85.118 Personal history of other malignant neoplasm of bronchus and lung; F17.218 Nicotine dependence, cigarettes, with other nicotine-induced disorders; Z92.3 Personal history of irradiation; Z88.8 Allergy status to other drugs, medicaments and biological substances; Z79.890 Hormone replacement therapy; Z79.899 Other long term (current) drug therapy; Z79.84 Long term (current) use of oral hypoglycemic drugs
CPT/HCPCS: 36415; 80053; 82024; 82533; G0463

== ENCOUNTER → 2024-12-03 | Outpatient (CLI) | payer MEDICARE, BC | LOC: M ONCR 08:48 | PROVIDERS: ATTEND General Practice | DX: D35.02 Benign neoplasm of left adrenal gland (principal); Z85.118 Personal history of other malignant neoplasm of bronchus and lung; F17.218 Nicotine dependence, cigarettes, with other nicotine-induced disorders; Z92.3 Personal history of irradiation; Z88.8 Allergy status to other drugs, medicaments and biological substances; Z79.890 Hormone replacement therapy; Z79.899 Other long term (current) drug therapy; Z79.84 Long term (current) use of oral hypoglycemic drugs ==

== ENCOUNTER → 2025-04-06 | Outpatient (REF) | payer MEDICARE, BC | LOC: M SFHCPLAZ 15:34 | PROVIDERS: ATTEND Student in an Organized Health Care Education/Training Program | DX: E03.9 Hypothyroidism, unspecified (principal); Z11.4 Encounter for screening for human immunodeficiency virus [HIV]; Z11.59 Encounter for screening for other viral diseases; Z13.0 Encounter for screening for diseases of the blood and blood-forming organs and certain disorders involving the immune mechanism; Z13.220 Encounter for screening for lipoid disorders; Z13.9 Encounter for screening, unspecified; Z13.1 Encounter for screening for diabetes mellitus ==

== ENCOUNTER → 2025-04-06 | Outpatient (CLI) | payer MEDICARE, BC ==
[2025-04-06 17:45] LABS: PLATELET COUNT, AUTOMATED 300 10^3/uL (150-450)
[2025-04-06 18:13] LABS: ALT/SGPT 57 U/L (7.0-40); AST/SGOT 53 U/L (<34); CALCIUM LEVEL 9.5 MG/DL (8.3-10.6); CARBON DIOXIDE LEVEL 29 MMOL/L (20-31); CHLORIDE LEVEL 103 MMOL/L (98-107); CHOLESTEROL LEVEL 164 MG/DL (<200); CHOLESTEROL RISK RATIO 3.63 (<5); CREATININE FOR GFR 0.95 MG/DL (0.55-1.30); FREE T4 1.27 NG/DL (0.89-1.76); GLOMERULAR FILTRATION RATE 66.9 (>45); LDL CHOLESTEROL 68.7 MG/DL (<100); NON-HDL-C 118.9 MG/DL; POTASSIUM SERUM 4.4 MMOL/L (3.5-5.1); SODIUM LEVEL 140 MMOL/L (136-145); TRIGLYCERIDES LEVEL 251 MG/DL (<150)
[2025-04-06 18:16] LABS: ESTIMATED AVERAGE GLUCOSE 117.0 MG/DL (60-110)
[2025-04-06 18:44] LABS: HIV 1&2 SCREEN NEGATIVE (NEGATIVE)
== END ==
LOC: M PLALAB 15:49
DX: E03.9 Hypothyroidism, unspecified (principal); Z11.4 Encounter for screening for human immunodeficiency virus [HIV]; Z11.59 Encounter for screening for other viral diseases; Z13.0 Encounter for screening for diseases of the blood and blood-forming organs and certain disorders involving the immune mechanism; Z13.220 Encounter for screening for lipoid disorders; Z13.1 Encounter for screening for diabetes mellitus; Z79.84 Long term (current) use of oral hypoglycemic drugs; Z79.899 Other long term (current) drug therapy; Z11.3 Encounter for screening for infections with a predominantly sexual mode of transmission; Z72.89 Other problems related to lifestyle
CPT/HCPCS: 80053; 80061; 83036; 84439; 84443; 85027; 87389; G0472

== ENCOUNTER → 2025-06-02 | Outpatient (CLI) | payer MEDICARE, BC | LOC: M RAD 07:47 | PROVIDERS: ATTEND General Practice | DX: C34.12 Malignant neoplasm of upper lobe, left bronchus or lung (principal); J43.9 Emphysema, unspecified; M47.814 Spondylosis without myelopathy or radiculopathy, thoracic region; I70.0 Atherosclerosis of aorta ==

== ENCOUNTER → 2025-06-05 | Outpatient (CLI) | payer MEDICARE, BC | LOC: M ONCR 08:45 | PROVIDERS: ATTEND General Practice | DX: C34.12 Malignant neoplasm of upper lobe, left bronchus or lung (principal); F17.218 Nicotine dependence, cigarettes, with other nicotine-induced disorders; Z92.3 Personal history of irradiation; Z88.8 Allergy status to other drugs, medicaments and biological substances; Z79.84 Long term (current) use of oral hypoglycemic drugs; Z79.899 Other long term (current) drug therapy ==